=== PATIENT | male | born 1955 | race Caucasian/White ===

== ENCOUNTER → 2017-12-05 | Outpatient (CLI) | payer OTHER ==
[~2017-12-05] MED LIST: BUPIVACAINE HCL/PF 0.25% 30 ML VIAL ONE; LIDOCAINE HCL/PF 1% 30 ML VIAL ONE; MethylPREDNISolone SOD SUCC 40 MG/ML VIAL ONE
== END | disposition home or self-care (01) ==
LOC: RADMN 10:35
PROVIDERS: ATTEND Internal Medicine
DX: M25.551 Pain in right hip (principal)
CPT/HCPCS: 27093; 73525; 76000; J2920; J3490 ×2